=== PATIENT | female | born 1950 | race Caucasian/White ===

== ENCOUNTER 2018-04-07 18:22 | Emergency (ER) | payer MEDICARE, BC ==
[2018-04-07 18:31] VITALS: BP 108/75
[2018-04-07] MEDS ORDERED: Diphtheria,Pertussis(Acell),Tetanus Vaccine 0.5 ML Syringe IM ONE (18:48)
--- NOTE | 2018-04-07 18:54 | EDM.PDOC ---
ED HPI GENERAL MEDICAL PROBLEM - General Chief Complaint: Skin Complaint Stated Complaint: I have a piece metal under my fingernail Time Seen by Provider: 04/07/18 18:30 Source of Information: Reports: Patient History Limitations: Reports: No Limitations - History of Present Illness INITIAL COMMENTS - FREE TEXT/NARRATIVE: This patient is a 67 year old female that presents to the ER. Patient reports getting in her car door, when she got a metal splinter to the left 2nd digit under the nail. She tried to dig it out on her own without success. Onset: Today Onset Date: 04/07/18 Duration: Hour(s): (2) Location: Reports: Upper Extremity, Left Severity: Mild Improves with: Reports: None Worsens with: Reports: None Associated Symptoms: Reports: No Other Symptoms Left 2-Index finger Pain Score (Numeric/FACES): 4 - Related Data Allergies Allergy/AdvReac Type Severity Reaction Status Date / Time cephalexin monohydrate Allergy Abdominal Verified 04/07/18 18:36 [From Keflex] Pain NSAIDS (Non-Steroidal Allergy Cannot Verified 04/07/18 18:36 Anti-Inflamma Remember prednisone Allergy Swelling Verified 04/07/18 18:36 Sulfa (Sulfonamide Allergy Rash Verified 04/07/18 18:36 Antibiotics) Home Meds: Home Meds Acetaminophen [Tylenol Extra Strength] 500 mg PO Q4H PRN 06/23/13 [History] Albuterol [Ventolin HFA] 2 puff INH Q4H PRN 06/23/13 [History] B2/Vit A,C & E/Lut/Zeaxanth/Mn [Icaps] 2 each PO DAILY 06/23/13 [History] Cholecalciferol (Vitamin D3) [Vitamin D3] 10,000 unit PO Q2D 06/23/13 [History] Cyanocobalamin (Vitamin B12) [Vitamin B12] 1,000 mcg IJ Q30D 06/23/13 [History] FLUoxetine HCl [Fluoxetine HCl] 40 mg PO DAILY 06/23/13 [History] Formoterol/Mometasone [Dulera 100 MCG/5 MCG] 2 puff IH BID PRN 06/23/13 [History ] Hydrocodone/Acetaminophen [Hydrocodone-Acetaminophen 5-325] 1 - 2 tab PO Q4H PRN 06/23/13 [History] Lactobacillus Acidophilus [Probiotic] 1 each PO DAILY 06/23/13 [History] Levothyroxine Sodium [Synthroid] 150 mg PO DAILY 06/23/13 [History] QuiNINE [Qualaquin] 648 mg PO ASDIRECTED PRN 06/23/13 [History] Pantoprazole [ProTONIX] 40 mg PO DAILY #30 tab.cr 06/24/13 [Rx] Past Medical History Cardiovascular History: Reports: Hypertension, Other (See Below) Other Cardiovascular History: VALVE LEAK Respiratory History: Reports: Asthma Gastrointestinal History: Reports: Other (See Below) Other Gastrointestinal History: GASTRIC BYPASS Musculoskeletal History: Reports: Other (See Below) Other Musculoskeletal History: pt states her knees need replaced Social & Family History - Family History Family Medical History: Noncontributory ED ROS GENERAL - Review of Systems Review Of Systems: See Below Constitutional: Reports: No Symptoms HEENT: Reports: No Symptoms Respiratory: Reports: No Symptoms Cardiovascular: Reports: No Symptoms Endocrine: Reports: No Symptoms GI/Abdominal: Reports: No Symptoms : Reports: No Symptoms Musculoskeletal: Reports: No Symptoms Skin: Reports: Other (FB, small metal under the left 2nd digit nail. ) Neurological: Reports: No Symptoms Psychiatric: Reports: No Symptoms Hematologic/Lymphatic: Reports: No Symptoms Immunologic: Reports: No Symptoms ED EXAM, SKIN/RASH Exam: See Below Exam Limited By: No Limitations General Appearance: Alert, WD/WN, No Apparent Distress Respiratory/Chest: No Respiratory Distress, Lungs Clear, Normal Breath Sounds, No Accessory Muscle Use Cardiovascular: Normal Peripheral Pulses, Regular Rate, Rhythm, No Edema, No Gallop, No JVD, No Murmur, No Rub Peripheral Pulses: 2+: Radial (L), Radial (R) Extremities: Normal Range of Motion, Non-Tender, No Pedal Edema, Normal Capillary Refill Neurological: Alert, Oriented Psychiatric: Normal Affect, Normal Mood Skin: Warm, Dry, Normal Color, No Rash, Wound/Incision (very tiny puncture wound under left 2nd digit finger nail with metal. ) Location, Skin: Upper Extremity, Left Associated features: No: Warmth, Tenderness, Swelling, Inflammation, Weeping Lymphatic: No Adenopathy ED SKIN PROCEDURES - Foreign Body Removal Indication:: left 2nd finger nail tiny metal. Consent Obtained:: Patient Performing Doctor:: Unruly Leon Foreign Body Other Location Comment:: left finger nail bed, 2nd digit. Anesthesia Type: None Complications:: No Comments:: used alligator forceps to retrieve without complications. Area than washed with soap and water. No complications. Course - Vital Signs Last Recorded V/S: Last Vital Signs Temp 97.6 F 04/07/18 18:30 Pulse 70 04/07/18 18:30 Resp 18 04/07/18 18:30 BP 108/75 04/07/18 18:30 Pulse Ox 98 04/07/18 18:30 - Orders/Labs/Meds Orders: Active Orders 24 hr Category Date Time Status Vaccines to be Administered [RC] PER UNIT ROUTINE Care 04/07/18 18:48 Active Diphth,Pertuss(Acell),Tet Vac [Adacel] Med 04/07/18 18:48 Once 0.5 ml IM .ONCE ONE Medication Orders Diphtheria/Tetanus/Acell Pertussis (Adacel) 0.5 ml IM .ONCE ONE Stop: 04/07/18 18:49 Last Admin: 04/07/18 18:55 Dose: 0.5 ml Meds: Medications Generic Name Dose Route Start Last Admin Trade Name Freq PRN Reason Stop Dose Admin Diphtheria/Tetanus/Acell Pertussis 0.5 ml 04/07/18 18:48 04/07/18 18:55 Adacel IM 04/07/18 18:49 0.5 ml .ONCE ONE Administration Departure - Departure Time of Disposition: 18:52 Disposition: Home, Self-Care 01 Condition: Good Clinical Impression: Foreign body (FB) in soft tissue - Discharge Information *PRESCRIPTION DRUG MONITORING PROGRAM REVIEWED*: No *COPY OF PRESCRIPTION DRUG MONITORING REPORT IN PATIENT RAFA: No Instructions: Puncture Wound, [id number], VIS, Diphtheria, Tetanus, and Pertussis (DTaP) - CDC (08/17/2006) Forms: ED Department Discharge Additional Instructions: Followup with primary care provider as needed Return as needed Wash with soap and water twice a day, apply neosporin as need You got a Tetanus shot today - My Orders Last 24 Hours: My Active Orders 04/07/18 18:48 Vaccines to be Administered [RC] PER UNIT ROUTINE Diphth,Pertuss(Acell),Tet Vac [Adacel] 0.5 ml IM .ONCE ONE - Assessment/Plan Last 24 Hours: My Active Orders 04/07/18 18:48 Vaccines to be Administered [RC] PER UNIT ROUTINE Diphth,Pertuss(Acell),Tet Vac [Adacel] 0.5 ml IM .ONCE ONE Plan: PLEASE SEE RN NOTE FOR PFSH.
== END 2018-04-07 19:05 | disposition home or self-care (01) ==
LOC: CC.ED 18:22
DX: S61.241A Puncture wound with foreign body of left index finger without damage to nail, initial encounter (principal); I10 Essential (primary) hypertension; Z23 Encounter for immunization; Z88.1 Allergy status to other antibiotic agents; Z88.2 Allergy status to sulfonamides; Z79.899 Other long term (current) drug therapy; Z98.84 Bariatric surgery status
CPT/HCPCS: 90471; 90715; 99282

== ENCOUNTER 2020-11-20 19:26 | Emergency (ER) | payer MEDICARE, BC ==
[2020-11-20 19:29] VITALS: BP 145/74; PULSE 63
--- NOTE | 2020-11-20 20:12 | EDM.PDOC ---
ED HPI GENERAL MEDICAL PROBLEM - General Chief Complaint: Laceration Stated Complaint: laceration to L)foot Time Seen by Provider: 11/20/20 19:55 Source of Information: Reports: Patient History Limitations: Reports: No Limitations - History of Present Illness INITIAL COMMENTS - FREE TEXT/NARRATIVE: This patient is a 70 year old female that presents to the ER for laceration. Pat juaquin reports that she was cutting watermelon at home and laid a knife on the counter. She reports she leaned down to chicken picker the cooler and the knife fell hitting her left foot top near greater toe. She reports a laceration to the site. Patient denies other injuries. Patient reports she is able to ambulate and move her foot without difficulty. Onset: Today Onset Date: 11/20/20 (SLUBBER RUNNER) Location: Reports: Lower Extremity, Left Front/Back Body Image: 1 - laceration Severity: Mild Improves with: Reports: None Worsens with: Reports: None Associated Symptoms: Reports: No Other Symptoms - Related Data Allergies Allergy/AdvReac Type Severity Reaction Status Date / Time cephalexin monohydrate Allergy Abdominal Verified 11/20/20 19:30 [From Keflex] Pain NSAIDS (Non-Steroidal Allergy Cannot Verified 11/20/20 19:30 Anti-Inflamma Remember prednisone Allergy Swelling Verified 11/20/20 19:30 Vjfhjsh-Blr-Ogv Reductase Allergy Cannot Verified 11/20/20 19:30 Inhibitor Remember Sulfa (Sulfonamide Allergy Rash Verified 11/20/20 19:30 Antibiotics) Home Meds: Home Meds Acetaminophen [Tylenol Extra Strength] 500 mg PO Q4H PRN 06/23/13 [History] Albuterol [Ventolin HFA] 2 puff INH Q4H PRN 06/23/13 [History] B2/Vits A,C,E/Lut/Zeaxanth/Min [Icaps] 2 each PO DAILY 06/23/13 [History] Cholecalciferol (Vitamin D3) [Vitamin D3] 5,000 unit PO Q2D 06/23/13 [History] FLUoxetine HCl [Fluoxetine HCl] 40 mg PO DAILY 06/23/13 [History] Formoterol/Mometasone [Dulera 100 MCG/5 MCG] 2 puff IH BID PRN 06/23/13 [Hist ory] Hydrocodone/Acetaminophen [Hydrocodone-Acetaminophen 5-325] 1 - 2 tab PO Q4H PRN 06/23/13 [History] QuiNINE [Qualaquin] 648 mg PO ASDIRECTED PRN 06/23/13 [History] Aspirin 81 mg PO DAILY 01/28/20 [History] LORazepam [Ativan] 1 dose PO DAILY PRN 01/28/20 [History] Past Medical History HEENT History: Reports: Cataract, Other (See Below) Other HEENT History: cornea dystrophy Cardiovascular History: Reports: Bypass, Hypertension, Other (See Below) Other Cardiovascular History: VALVE LEAK Respiratory History: Reports: Asthma Gastrointestinal History: Reports: Diverticulosis, Other (See Below) Other Gastrointestinal History: GASTRIC BYPASS x2 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: Musculoskeletal History: Reports: Other (See Below) Other Musculoskeletal History: pt states her knees need replaced Psychiatric History: Reports: Anxiety Endocrine/Metabolic History: Reports: Other (See Below) Oncologic (Cancer) History: Reports: Thyroid - Infectious Disease History Infectious Disease History: Reports: Chicken Pox, Measles - Past Surgical History HEENT Surgical History: Reports: Cataract Surgery Cardiovascular Surgical History: Reports: Other (See Below) Other Cardiovascular Surgeries/Procedures: [facility] GI Surgical History: Reports: Cholecystectomy Other GI Surgeries/Procedures: 14 inches of colon taken out. Hx of emergency surgery for stool blockage Endocrine Surgical History: Reports: Thyroidectomy Social & Family History - Family History Family Medical History: No Pertinent Family History - Tobacco Use Tobacco Use Status *Q: Never Tobacco User - Caffeine Use Caffeine Use: Reports: Soda - Recreational Drug Use Recreational Drug Use: No ED ROS GENERAL - Review of Systems Review Of Systems: See Below Constitutional: Reports: No Symptoms Respiratory: Reports: No Symptoms Cardiovascular: Reports: No Symptoms Musculoskeletal: Reports: Foot Pain (left mild) Skin: Reports: Wound (left foot laceration) Neurological: Reports: No Symptoms ED EXAM, SKIN/RASH Exam: See Below Exam Limited By: No Limitations General Appearance: Alert, WD/WN, No Apparent Distress Respiratory/Chest: No Respiratory Distress, Lungs Clear, Normal Breath Sounds, No Accessory Muscle Use Cardiovascular: Normal Peripheral Pulses, Regular Rate, Rhythm Extremities: Normal Range of Motion, Non-Tender, No Pedal Edema, Normal Capillary Refill, Other (Left foot pulses +2, cap refill < 2 sec, sensory/motor function intact. neurovascular intact. ) Neurological: Alert, Oriented, Normal Cognition, Normal Gait, No Motor/Sensory Deficits Psychiatric: Normal Affect, Normal Mood Skin: Warm, Dry, Normal Color, No Rash, Wound/Incision (laceration left top of foot ) Location, Skin: Lower Extremity, Left ED SKIN PROCEDURES - Laceration/Wound Repair Left Foot Appearance: Superficial Distal NVT: Neuro & Vascular Intact, No Tendon Injury Anesthetic Type: Local Local Anesthesia - Lidocaine (Xylocaine): 1% Plain Local Anesthetic Volume: 2cc Skin Prep: Chlorhexidine (Hibiciens) Saline Irrigation (cc's): 75 Exploration/Debridement/Repair: Wound Explored, In a Bloodless Field, Explored to Base, No Foreign Material Found, Wound Margins Revised Closed with: Sutures Lac/Wound length In cm: 2 Suture Size: 5-0 # of Sutures: 2 Suture Type: Nylon Tetanus Status Addressed: Yes Complications: No Course - Vital Signs Last Recorded V/S: Last Vital Signs Temp 97.3 F 11/20/20 19:29 Pulse 63 11/20/20 19:29 Resp 18 11/20/20 19:29 BP 145/74 H 11/20/20 19:29 Pulse Ox 98 11/20/20 19:29 - Orders/Labs/Meds Orders: Active Orders 24 hr Category Date Time Status Vaccines to be Administered [RC] PER UNIT ROUTINE Care 11/20/20 19:56 Active Foot Comp Min 3V Lt [CR] Stat Exams 11/20/20 19:47 Taken Meds: Medications Discontinued Medications Generic Name Dose Route Start Last Admin Trade Name Freq PRN Reason Stop Dose Admin Diphtheria/Tetanus/Acell Pertussis 0.5 ml 11/20/20 19:56 11/20/20 20:32 Diphtheria,Pertussis(Acell),Tetanus Vaccine 0.5 Ml Syringe IM 11/20/20 19:57 0.5 ml .ONCE ONE Administration Lidocaine HCl 5 ml 11/20/20 20:07 11/20/20 20:32 Lidocaine 1% 5 Ml Sdv INJECT 11/20/20 20:08 5 ml ONETIME ONE Administration - Radiology Interpretation Free Text/Narrative:: Left Foot Xray: no fracture, no FB. Soft tissue injury laceration Departure - Departure Time of Disposition: 20:38 Disposition: Home, Self-Care 01 Condition: Fair Clinical Impression: Puncture wound - injury - Discharge Information *PRESCRIPTION DRUG MONITORING PROGRAM REVIEWED*: Not Applicable *COPY OF PRESCRIPTION DRUG MONITORING REPORT IN PATIENT RAFA: Not Applicable Instructions: Puncture Wound, [id number], Laceration Care, Adult, [id number] Forms: ED Department Discharge Additional Instructions: Followup with you primary care provider in 5-7 days for suture removal Return to the ER for worsening of condition or any emergent concerns such as redness, drainage, fever, vomiting Wash the wound twice a day with soap and water gently, rinse, pat dry. Keep clean and covered Tylenol or Motrin for pain as needed Sepsis Event Note (ED) - Focused Exam Vital Signs: Vital Signs Temp Pulse Resp BP Pulse Ox 11/20/20 19:29 97.3 F 63 18 145/74 H 98 - My Orders Last 24 Hours: My Active Orders 11/20/20 19:47 Foot Comp Min 3V Lt [CR] Stat 11/20/20 19:56 Vaccines to be Administered [RC] PER UNIT ROUTINE - Assessment/Plan Last 24 Hours: My Active Orders 11/20/20 19:47 Foot Comp Min 3V Lt [CR] Stat 11/20/20 19:56 Vaccines to be Administered [RC] PER UNIT ROUTINE Plan: PLEASE SEE RN NOTE FOR PFSH
[2020-11-20] MEDS: Diphtheria,Pertussis(Acell),Tetanus Vaccine 0.5 ML Syringe IM ONE (20:32)
== END 2020-11-20 21:00 | disposition home or self-care (01) ==
LOC: CC.ED 19:26
DX: S91.332A Puncture wound without foreign body, left foot, initial encounter (principal); I10 Essential (primary) hypertension; Z95.1 Presence of aortocoronary bypass graft; Z88.1 Allergy status to other antibiotic agents; Z88.2 Allergy status to sulfonamides; Z88.8 Allergy status to other drugs, medicaments and biological substances; Z79.82 Long term (current) use of aspirin; Z79.899 Other long term (current) drug therapy; Z23 Encounter for immunization; W26.0XXA Contact with knife, initial encounter
CPT/HCPCS: 12001; 73630-LT; 90471; 90715; 99283; 99283-25

== ENCOUNTER 2021-03-20 15:50 | Emergency (ER) | payer MEDICARE, BC ==
[2021-03-20 16:25] VITALS: BP 122/73; PULSE 98
[2021-03-20] MEDS ORDERED: Albuterol/Ipratropium 3.0-0.5 MG/3 ML Neb Soln NEB ONE (16:27)
[2021-03-20] MEDS ORDERED: Benzonatate 100 MG Cap PO ONE (16:32)
[2021-03-20] MEDS ORDERED: methylPREDNISolone Sodium Succinate 125 MG/2 ML SDV IVPUSH ONE (16:53)
--- NOTE | 2021-03-20 17:26 | EDM.PDOC ---
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 Treatments, Other (see below) (Saw PCP this week and is on Azithromycin) Ribs when coughing Pain Score (Numeric/FACES): 6 - Related Data Allergies Allergy/AdvReac Type Severity Reaction Status Date / Time cephalexin monohydrate Allergy Abdominal Verified 11/20/20 19:30 [From Keflex] Pain NSAIDS (Non-Steroidal Allergy Cannot Verified 11/20/20 19:30 Anti-Inflamma Remember prednisone Allergy Swelling Verified 11/20/20 19:30 Fdghdbi-VRB-HrQ Reductase Allergy Cannot Verified 11/20/20 19:30 Inhibitor Remember [Gwjwsdn-Zrp-Uyg Reductase Inhibitor] Sulfa (Sulfonamide Allergy Rash Verified 11/20/20 19:30 Antibiotics) Home Meds: Home Meds Acetaminophen [Tylenol Extra Strength] 500 mg PO Q4H PRN 06/23/13 [History] Albuterol [Ventolin HFA] 2 puff INH Q4H PRN 06/23/13 [History] B2/Vits A,C,E/Lut/Zeaxanth/Min [Icaps] 2 each PO DAILY 06/23/13 [History] Cholecalciferol (Vitamin D3) [Vitamin D3] 5,000 unit PO Q2D 06/23/13 [History] FLUoxetine HCl [Fluoxetine HCl] 40 mg PO DAILY 06/23/13 [History] Formoterol/Mometasone [Dulera 100 MCG/5 MCG] 2 puff IH BID PRN 06/23/13 [History] Hydrocodone/Acetaminophen [Hydrocodone-Acetaminophen 5-325] 1 - 2 tab PO Q4H PRN 06/23/13 [History] QuiNINE [Qualaquin] 648 mg PO ASDIRECTED PRN 06/23/13 [History] Aspirin 81 mg PO DAILY 01/28/20 [History] LORazepam [Ativan] 1 dose PO DAILY PRN 01/28/20 [History] Past Medical History HEENT History: Reports: Cataract, Other (See Below) Other HEENT History: cornea dystrophy Cardiovascular History: Reports: Bypass, Hypertension, Other (See Below) Other Cardiovascular History: VALVE LEAK Respiratory History: Reports: Asthma Gastrointestinal History: Reports: Diverticulosis, Other (See Below) Other Gastrointestinal History: GASTRIC BYPASS x2 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: Musculoskeletal History: Reports: Other (See Below) Other Musculoskeletal History: pt states her knees need replaced Psychiatric History: Reports: Anxiety Endocrine/Metabolic History: Reports: Other (See Below) Oncologic (Cancer) History: Reports: Thyroid - Infectious Disease History Infectious Disease History: Reports: Chicken Pox, Measles - Past Surgical History HEENT Surgical History: Reports: Cataract Surgery Cardiovascular Surgical History: Reports: Other (See Below) Other Cardiovascular Surgeries/Procedures: Heart Bypass in November 2019 in [facility] GI Surgical History: Reports: Cholecystectomy Other GI Surgeries/Procedures: 14 inches of colon taken out. Hx of emergency surgery for stool blockage Endocrine Surgical History: Reports: Thyroidectomy Social & Family History - Family History Family Medical History: No Pertinent Family History - Caffeine Use Caffeine Use: Reports: Soda ED ROS GENERAL - Review of Systems Review Of Systems: See Below Constitutional: Reports: No Symptoms HEENT: Reports: No Symptoms Respiratory: Reports: Shortness of Breath, Wheezing, Cough Cardiovascular: Reports: No Symptoms Endocrine: Reports: No Symptoms GI/Abdominal: Reports: No Symptoms : Reports: No Symptoms Musculoskeletal: Reports: Other (rib pain (coughing)) Skin: Reports: No Symptoms Neurological: Reports: No Symptoms Psychiatric: Reports: No Symptoms Hematologic/Lymphatic: Reports: No Symptoms Immunologic: Reports: No Symptoms ED EXAM, GENERAL - Physical Exam Exam: See Below Exam Limited By: No Limitations General Appearance: Alert, No Apparent Distress Eye Exam: Bilateral Eye: Normal Inspection Ears: Normal External Exam Nose: Normal Inspection, Normal Mucosa, No Blood Throat/Mouth: Normal Inspection, Normal Lips, Normal Teeth, Normal Gums, Normal Oropharynx, Normal Voice, No Airway Compromise Head: Atraumatic, Normocephalic Neck: Normal Inspection, Supple, Non-Tender, Full Range of Motion Respiratory/Chest: No Respiratory Distress, Decreased Breath Sounds, Wheezing Cardiovascular: Normal Peripheral Pulses, Regular Rate, Rhythm, No Edema GI/Abdominal: Normal Bowel Sounds, Soft, Non-Tender, No Distention Back Exam: Normal Inspection, Full Range of Motion Extremities: Normal Inspection, Normal Range of Motion, Non-Tender, No Pedal Edema, Normal Capillary Refill Neurological: Alert, Oriented, Normal Cognition, Normal Gait, No Motor/Sensory Deficits Psychiatric: Normal Affect, Normal Mood Skin Exam: Warm, Dry, Intact, Normal Color, No Rash Lymphatic: No Adenopathy Course - Vital Signs Last Recorded V/S: Last Vital Signs Temp 99.5 F 03/20/21 15:53 Pulse 98 03/20/21 15:53 Resp 18 03/20/21 15:53 BP 122/73 03/20/21 15:53 Pulse Ox 98 03/20/21 15:53 - Orders/Labs/Meds Orders: Active Orders 24 hr Category Date Time Status RT Aerosol Therapy [RC] ASDIRECTED Care 03/20/21 16:27 Active Chest 2V [CR] Stat Exams 03/20/21 16:48 Taken Benzonatate [Tessalon Perles] Med 03/20/21 17:30 Active 400 mg PO BID Medication Orders Benzonatate (Benzonatate 100 Mg Cap) 400 mg PO BID BRIAN Labs: Laboratory Tests 03/20/21 Range/Units 16:00 SARS CoV-2 RNA Rapid LIBBY Negative (NEGATIVE) Meds: Medications Generic Name Dose Route Start Last Admin Trade Name Freq PRN Reason Stop Dose Admin Benzonatate 400 mg 03/20/21 17:30 Benzonatate 100 Mg Cap PO BID BRIAN Discontinued Medications Generic Name Dose Route Start Last Admin Trade Name Freq PRN Reason Stop Dose Admin Albuterol/Ipratropium 3 ml 03/20/21 16:27 03/20/21 16:30 Albuterol/Ipratropium 3.0-0.5 Mg/3 Ml Neb Soln NEB 03/20/21 16:28 3 ml ONETIME ONE Administration Benzonatate 100 mg 03/20/21 16:32 03/20/21 16:39 Benzonatate 100 Mg Cap PO 03/20/21 16:33 100 mg ONETIME ONE Administration Methylprednisolone Sodium Succinate 62.5 mg 03/20/21 16:53 03/20/21 17:03 Methylprednisolone Sodium Succinate 125 Mg/2 Ml Sdv IVPUSH 03/20/21 16:54 62.5 mg ONETIME ONE Administration - Radiology Interpretation Free Text/Narrative:: no consolidation noted on CXR, compared with old films from 2017 Departure - Departure Time of Disposition: 17:35 Disposition: DC/[facility] to [facility]04 Condition: Good Clinical Impression: Asthma Qualifiers: Asthma severity: unspecified severity Asthma persistence: unspecified Asthma complication type: with acute exacerbation Qualified Code(s): J45.901 - Unspecified asthma with (acute) exacerbation - Discharge Information Instructions: Asthma, Adult, [id number] Referrals: PCP,None [Primary Care Provider] - Forms: ED Department Discharge Additional Instructions: Follow up with Primary Care Provider Sepsis Event Note (ED) - Focused Exam Vital Signs: Vital Signs Temp Pulse Resp BP Pulse Ox 03/20/21 15:53 99.5 F 98 18 122/73 98 - Problem List & Annotations (1) Asthma SNOMED Code(s): 161804456 Code(s): J45.909 - UNSPECIFIED ASTHMA, UNCOMPLICATED Status: Acute Current Visit: Yes Qualifiers: Asthma severity: unspecified severity Asthma persistence: unspecified Asthma complication type: with acute exacerbation Qualified Code(s): J45.901 - Unspecified asthma with (acute) exacerbation - My Orders Last 24 Hours: My Active Orders 03/20/21 16:27 RT Aerosol Therapy [RC] ASDIRECTED 03/20/21 16:48 Chest 2V [CR] Stat 03/20/21 17:30 Benzonatate [Tessalon Perles] 400 mg PO BID - Assessment/Plan Last 24 Hours: My Active Orders 03/20/21 16:27 RT Aerosol Therapy [RC] ASDIRECTED 03/20/21 16:48 Chest 2V [CR] Stat 03/20/21 17:30 Benzonatate [Tessalon Perles] 400 mg PO BID
[2021-03-20] MEDS ORDERED: Benzonatate 100 MG Cap PO SCH (17:30)
== END 2021-03-20 17:55 | disposition home or self-care (01) ==
LOC: CC.ED 16:20
DX: J45.901 Unspecified asthma with (acute) exacerbation (principal); I10 Essential (primary) hypertension; Z95.1 Presence of aortocoronary bypass graft; Z88.1 Allergy status to other antibiotic agents; Z88.2 Allergy status to sulfonamides; Z88.8 Allergy status to other drugs, medicaments and biological substances; Z79.82 Long term (current) use of aspirin; Z79.899 Other long term (current) drug therapy; Z20.822 Contact with and (suspected) exposure to COVID-19
CPT/HCPCS: 71046; 94640; 96374; 99285; A9270; J2930; U0002; J7620-GY

== ENCOUNTER 2021-12-12 11:04 | Emergency (ER) | payer MEDICARE, BC ==
[2021-12-12 11:39] LABS: CHLORIDE,CL 103 mEq/L (98-106); SODIUM,NA 139 mEq/L (136-145)
[2021-12-12 11:40] LABS: ESTIMATED GFR 78 mL/min (>=60)
[2021-12-12 11:42] LABS: PTT,PARTIAL THROMBOPLSTIN TIME 24.3 SEC (23.2-32.3)
[2021-12-12] MEDS ORDERED: Ondansetron 4 MG/2 ML SDV IVPUSH PRN (14:01)
[2021-12-12] MEDS ORDERED: fentaNYL 50 MCG/ML SDV IVPUSH ONE (14:01)
[2021-12-12 14:03] VITALS: BP 160/85; PULSE 73
== END 2021-12-12 15:45 | disposition home or self-care (01) ==
LOC: CC.ED 11:04
DX: S12.601A Unspecified nondisplaced fracture of seventh cervical vertebra, initial encounter for closed fracture (principal); S01.01XA Laceration without foreign body of scalp, initial encounter; I10 Essential (primary) hypertension; Z88.1 Allergy status to other antibiotic agents; Z88.6 Allergy status to analgesic agent; Z88.8 Allergy status to other drugs, medicaments and biological substances; Z88.2 Allergy status to sulfonamides; Z79.899 Other long term (current) drug therapy; Z79.82 Long term (current) use of aspirin; X50.1XXA Overexertion from prolonged static or awkward postures, initial encounter
CPT/HCPCS: 12001; 36415; 70450; 72125; 73120-LT; 73140-FA; 80053; 84484; 85025; 85610; 85730; 96374; 96375; 99284; 99284-25; J2405; J3010